=== PATIENT | female | born 1970 | race Caucasian/White ===

== ENCOUNTER 2023-06-18 07:05 | Emergency (ER) | payer MEDICARE, MEDICAID, SELFPAY ==
[2023-06-18 07:08] VITALS: BP 154/88; PULSE 83; RESP 20; TEMP 36.5; O2SAT 97; BMI 22.9
--- NOTE | 2023-06-18 07:20 | ED.NAVMDI1 ---
HPI - Nausea/Vomiting/Diarrhea General Chief complaint: Nausea/Vomiting/Diarrhea Stated complaint: NAUSEA/VOMITING Time Seen by Provider: 06/18/23 07:19 Source: patient Mode of arrival: ambulance History of Present Illness HPI Narrative: 52-year-old male presents for nausea vomiting and diarrhea. It started during the middle of the night. When she went to bed last night she was fine and she has not been around anybody who has been sick. No hematemesis or blood in her diarrhea. She has not had a fever. Related Data Previous Rx's Medication Instructions Recorded ondansetron 4 mg disintegrating 4 mg PO Q6H PRN nausea and 06/18/23 tablet vomiting #20 tabs Allergies Allergy/AdvReac Type Severity Reaction Status Date / Time No Known Drug Allergies Allergy Verified 06/18/23 07:10 Review of Systems ROS Narrative A ten point review of systems is negative except as noted above. Exam Narrative Exam Narrative: Nurses note and vital signs reviewed and patient is not hypoxic. General: The patient appears well and in no apparent distress. Patient is resting comfortably on cart. Skin: Warm, dry, no pallor noted. There is no rash noted. Head: Normocephalic, atraumatic Eye: Normal conjunctiva, no drainage Ears, Nose, Mouth, and Throat: oral mucosa is moist. Nares patent. Cardiovascular: Regular Rate and Rhythm Respiratory: Patient is in no distress, no accessory muscle use, lungs are clear to auscultation, no wheezing, rales or rhonchi Back: non-tender GI: Soft and nontender Musculoskeletal: The patient has no evidence of calf tenderness, no pitting edema, symmetrical pulses noted bilaterally Neurological: A&O, normal speech Psychiatric: Cooperative Constitutional Vital Signs, click to edit/add: Last Vital Signs Temp 97.7 F 06/18/23 07:08 Pulse 83 06/18/23 07:08 Resp 20 06/18/23 07:08 BP 154/88 H 06/18/23 07:08 Pulse Ox 97 06/18/23 07:08 O2 Del Method Room Air 06/18/23 07:08 Course Vital Signs Vital signs: Vital Signs Temperature 97.7 F 06/18/23 07:08 Pulse Rate 83 06/18/23 07:08 Respiratory Rate 20 06/18/23 07:08 Blood Pressure 154/88 H 06/18/23 07:08 Pulse Oximetry 97 06/18/23 07:08 Oxygen Delivery Method Room Air 06/18/23 07:08 Temperature 97.7 F 06/18/23 07:08 Pulse Rate 83 06/18/23 07:08 Respiratory Rate 20 06/18/23 07:08 Blood Pressure 154/88 H 06/18/23 07:08 Pulse Oximetry 97 06/18/23 07:08 Oxygen Delivery Method Room Air 06/18/23 07:08 MDM - Nausea/Vomiting/Diarrhea MDM Narrative Medical decision making narrative: The patient feels much better after IV fluids and IV Zofran. WBC 20,000 but she has got no abdominal tenderness. Repeat examination at 8:15 AM shows her abdomen to be completely nontender. She is tolerating p.o. liquids and is able to be discharged home. Treatment diagnosis and follow-up were discussed with patient. Differential Diagnosis Differential diagnosis: Likely food poisoning, gastroenteritis and dehydration Lab Data Attestation: I reviewed the patient's lab results. Labs: Lab Results 06/18/23 Range/Units 07:13 WBC 20.1 H (4.0-11.0) 10^3/uL RBC 4.68 (4.20-5.40) 10^6/uL Hgb 15.0 (12.0-16.0) g/dL Hct 44.1 (36.0-48.0) % MCV 94.2 (81.0-99.0) fL MCH 32.1 (26.7-34.0) pg MCHC 34.0 (29.9-35.2) g/dL RDW 12.0 (11.0-15.0) % Plt Count 331 (150-450) 10^3/uL MPV 9.7 (9.5-13.5) fL Seg Neuts % (Manual) 92.0 Lymphocytes % (Manual) 4.0 L (20.5-60.0) % Monocytes % (Manual) 4.0 (1.7-12.0) % Eosinophils % (Manual) 0.0 L (0.9-7.0) % Basophils % (Manual) 0.0 L (0.2-2.0) % Neutrophils # (Manual) 18.49 H (1.4-6.5) 10^3/uL Lymphocytes # (Manual) 0.80 L (1.20-3.80) 10^3/uL Monocytes # (Manual) 0.80 (0.30-0.80) 10^3/uL Eosinophils # (Manual) 0.00 (0.00-0.70) 10^3/uL Basophils # (Manual) 0.00 (0.00-0.10) 10^3/uL Sodium 141 (136-145) mmol/L Potassium 4.5 (3.5-5.1) mmol/L Chloride 102 (98-107) mmol/L Carbon Dioxide 26.3 (21.0-32.0) mmol/L Anion Gap 17.2 BUN 23.0 H (7.0-18.0) mg/dL Creatinine 1.05 H (0.55-1.02) mg/dL Est GFR ( Amer) >60 (>=60) Est GFR (Non-Af Amer) 55 L (>=60) BUN/Creatinine Ratio 21.9 Glucose 189 H (74-106) mg/dL Calcium 9.3 (8.5-10.1) mg/dL Discharge Plan Discharge Chief Complaint: Nausea/Vomiting/Diarrhea Clinical Impression: Nausea, vomiting, and diarrhea Patient Disposition: Home, Self-Care Time of Disposition Decision: 08:19 Condition: Good Mode of Transportation: Private Vehicle Prescriptions / Home Meds: New ondansetron 4 mg tablet,disintegrating 4 mg PO Q6H PRN (Reason: nausea and vomiting) Qty: 20 0RF Instructions: Acute Nausea and Vomiting (ED), Acute Diarrhea (ED) Stand Alone Forms: Portal Instructions Referrals: Physician,Non-Staff, MD [Primary Care Provider] - 1 week
[2023-06-18] MEDS: 0.9 % SODIUM CHLORIDE 1,000 ML 1000 ML IV (07:25)
[2023-06-18] MEDS: ONDANSETRON PF 4 MG/2 ML VIAL IV (07:25)
[2023-06-18 07:26] LABS: Hematocrit 44.1 % (36.0-48.0); Mean Corpuscular Hemoglobin 32.1 pg (26.7-34.0); Mean Corpuscular Volume 94.2 fL (81.0-99.0); Mean Platelet Volume 9.7 fL (9.5-13.5); Platelet Count 331 10^3/uL (150-450); Red Blood Count 4.68 10^6/uL (4.20-5.40); White Blood Count 20.1 10^3/uL (4.0-11.0)
[2023-06-18 07:33] LABS: Anion Gap 17.2; BUN Creatinine Ratio 21.9; Calcium 9.3 mg/dL (8.5-10.1); Carbon Dioxide 26.3 mmol/L (21.0-32.0); Chloride 102 mmol/L (98-107); Estimated GFR (African America >60 (>=60); Estimated GFR (Non-African Ame 55 (>=60); Glucose 189 mg/dL (74-106); Potassium 4.5 mmol/L (3.5-5.1); Sodium 141 mmol/L (136-145)
[2023-06-18 08:05] LABS: Segmented Neut Absolute Manual 18.49 10^3/uL (1.4-6.5)
== END 2023-06-18 08:30 | disposition home or self-care (01) ==
PROVIDERS: Emergency Provider Emergency Medicine
DX: R11.2 Nausea with vomiting, unspecified (principal); R19.7 Diarrhea, unspecified
CPT/HCPCS: 36415; 80048; 85007; 85027; 96374; 99284; J2405

== ENCOUNTER 2023-11-17 10:45 | Emergency (ER) | payer MEDICARE, MEDICAID, SELFPAY ==
[2023-11-17] VITALS (18 sets, daily range): BP systolic 159; BP diastolic 83; PULSE 74–108; TEMP 37.6; O2SAT 96–100; BMI 24.7
[2023-11-17] MEDS: 0.9 % SODIUM CHLORIDE 1,000 ML 1000 ML IV (11:12)
[2023-11-17 11:17] LABS: Basophils Percent Auto 0.2 % (0.2-2.0); Eosinophils Percent Auto 0.3 % (0.9-7.0); Hemoglobin 14.8 g/dL (12.0-16.0); Immature Granulocytes Abs Auto 0.05 10^3/uL (0.00-0.03); Immature Granulocytes Pct Auto 0.3 % (0.0-0.5); Lymphocytes Absolute Auto 0.9 10^3/uL (1.2-3.8); Lymphocytes Percent Auto 6.1 % (20.5-60.0); Mean Corpuscular HGB Conc 34.4 g/dL (29.9-35.2); Mean Corpuscular Hemoglobin 32.5 pg (26.7-34.0); Mean Corpuscular Volume 94.5 fL (81.0-99.0); Mean Platelet Volume 9.7 fL (9.5-13.5); Monocytes Absolute Auto 1.1 10^3/uL (0.3-0.8); Neutrophils Absolute Auto 13.1 10^3/uL (1.4-6.5); Neutrophils Percent Auto 86.1 % (43.0-75.0); Platelet Count 268 10^3/uL (150-450); Red Blood Count 4.55 10^6/uL (4.20-5.40); Red Cell Distribution Width 11.9 % (11.0-15.0); White Blood Count 15.2 10^3/uL (4.0-11.0)
[2023-11-17] MEDS: FAMOTIDINE/PF 20 MG/2 ML VIAL IV (11:18)
[2023-11-17] MEDS: KETOROLAC TROMETHAMINE 30 MG/ML VIAL 15 MG IVP (11:18)
[2023-11-17 12:27] LABS: Alanine Aminotransferase 12 U/L (14-59); Albumin Globulin Ratio 0.9; Albumin Level 3.4 g/dL (3.4-5.0); Alkaline Phosphatase 85 U/L (46-116); Anion Gap 16.6; Aspartate Amino Transferase 11 U/L (15-37); BUN Creatinine Ratio 10.6; Bilirubin Total 0.5 mg/dL (0.2-1.0); Calcium 8.8 mg/dL (8.5-10.1); Carbon Dioxide 22.3 mmol/L (21.0-32.0); Chloride 102 mmol/L (98-107); Estimated GFR (African America >60 (>=60); Estimated GFR (Non-African Ame 55 (>=60); Glucose 161 mg/dL (74-106); Potassium 3.9 mmol/L (3.5-5.1); Sodium 137 mmol/L (136-145); Total Protein 7.4 g/dL (6.4-8.2)
[2023-11-17] MEDS: DICYCLOMINE HCL 10 MG CAPSULE 60 MG PO (13:49)
--- NOTE | 2023-11-17 15:29 | ED_ITS ---
HPI HPI - General Adult General Chief complaint: Nausea/Vomiting/Diarrhea Stated complaint: FOOD POISONING SYMPTOMS Time Seen by Provider: 11/17/23 10:52 Source: patient Mode of arrival: walk-in Limitations: no limitations History of Present Illness HPI narrative: The patient is coming to the ER with diarrhea as well as crampy abdominal pain that started after she just finished her ravioli that she got from [employer], she mentioned that she had that for dinner but woke up at 4 AM with diarrhea Patient was emotional and crying No nausea no fever and crampy abdominal pain Related Data Home Medications ?Medication ?Instructions ?Recorded ?Confirmed buspirone 10 mg tablet 10 mg PO .BId PRN anxiety 11/17/23 11/17/23 fluconazole 150 mg tablet 150 mg PO Q72H 11/17/23 11/17/23 venlafaxine 150 mg 150 mg PO DAILY 11/17/23 11/17/23 capsule,extended release 24 hr venlafaxine 37.5 mg 37.5 mg PO DAILY 11/17/23 11/17/23 capsule,extended release 24 hr Previous Rx's ?Medication ?Instructions ?Recorded ondansetron 4 mg disintegrating 4 mg PO Q6H PRN nausea and 06/18/23 tablet vomiting #20 tabs dicyclomine 20 mg tablet 20 mg PO QID PRN abdominal pain 11/17/23 #20 tabs Allergies Allergy/AdvReac Type Severity Reaction Status Date / Time No Known Drug Allergies Allergy Verified 06/18/23 07:10 Opioid HPI Opioid Management Most Recent Opioid Data: Last Pain Scale 7 11/17/23 11:18 Last MAR Pain Assessment 11/17/23 11:18 Review of Systems ROS Status of ROS 10 or more systems reviewed and unremark able except as noted in history and below Exam Narrative Exam Narrative: Nurses notes and vital signs reviewed and patient is not hypoxic. General: Well-appearing and in no apparent distress. Skin: Warm, dry, no pallor noted. No rash. Head: Normocephalic, atraumatic. Neck: Supple, non-tender. Eye: Pupils are equal, round and EOMI. No scleral icterus. Ears, Nose, Mouth, and Throat: TM are clear, no nasal mucosal hypertrophy. Oral mucosa is moist, no posterior oropharynx erythema, uvula is mid-line Cardiovascular: Regular Rate and Rhythm without murmur, gallop or rub. Respiratory: No accessory muscle use or respiratory distress. Lungs are clear to auscultation, no wheezing, rales or rhonchi Chest Wall: no tenderness Back: No midline thoracic or lumbar vertebral tenderness. No CVA tenderness Musculoskeletal: normal ROM, no calf or popliteal tenderness, no lower extremity edema/swelling GI: Abdomen is soft, non-distended. Normal bowel sounds. No masses appreciated. No tenderness to palpation. No rebound, guarding, or rigidity noted. Neurological: A&O x4. No cranial nerve dysfunction observed. No truncal ataxia. Moves all extremities. Sensation intact. Psychiatric: Cooperative and interactive. Normal mood and affect. Constitutional Vital Signs, click to edit/add: Last Vital Signs Temp 99.7 F 11/17/23 10:47 Pulse 74 11/17/23 13:20 Resp 15 11/17/23 13:20 BP 159/83 H 11/17/23 10:50 Pulse Ox 98 11/17/23 13:20 O2 Del Method Room Air 11/17/23 10:47 Course Vital Signs Vital signs: Vital Signs Temperature 99.7 F 11/17/23 10:47 Pulse Rate 101 H 11/17/23 10:47 Respiratory Rate 20 11/17/23 10:47 Blood Pressure 159/83 H 11/17/23 10:47 Pulse Oximetry 99 11/17/23 10:47 Oxygen Delivery Method Room Air 11/17/23 10:47 Temperature 99.7 F 11/17/23 10:47 Pulse Rate 74 11/17/23 13:20 Respiratory Rate 15 11/17/23 13:20 Blood Pressure 159/83 H 11/17/23 10:50 Pulse Oximetry 98 11/17/23 13:20 Oxygen Delivery Method Room Air 11/17/23 10:47 Medical Decision Making MDM Narrative Medical decision making narrative: Patient was evaluated previously for similar complaint and she did had leukocytosis before when she had that but today her white blood cell is better Abdomen examination was benign CBC and chemistry otherwise showed no acute pathology and the patient was treated with IV fluids and Toradol after which she was feeling better She was discharged home with [facility] Patient mentioned that she have the habit of eating old food and usually does not have any problem but I did explain to her that old foods can be growing bacteria The patient is to follow up with primary care physician in next 2-3 days or to return to the emergency department should any of the signs or symptoms worsen or new symptoms develop. The patient agrees with the following Diagnosis and Treatment plan and the patient will be discharged home. Lab Data Labs: Lab Results 11/17/23 11/17/23 Range/Units 11:00 11:26 WBC 15.2 H (4.0-11.0) 10^3/uL RBC 4.55 (4.20-5.40) 10^6/uL Hgb 14.8 (12.0-16.0) g/dL Hct 43.0 (36.0-48.0) % MCV 94.5 (81.0-99.0) fL MCH 32.5 (26.7-34.0) pg MCHC 34.4 (29.9-35.2) g/dL RDW 11.9 (11.0-15.0) % Plt Count 268 (150-450) 10^3/uL MPV 9.7 (9.5-13.5) fL Neut % (Auto) 86.1 H (43.0-75.0) % Lymph % (Auto) 6.1 L (20.5-60.0) % [place] % (Auto) 7.0 (1.7-12.0) % Eos % (Auto) 0.3 L (0.9-7.0) % Baso % (Auto) 0.2 (0.2-2.0) % Neut # (Auto) 13.1 H (1.4-6.5) 10^3/uL Lymph # (Auto) 0.9 L (1.2-3.8) 10^3/uL [place] # (Auto) 1.1 H (0.3-0.8) 10^3/uL Eos # (Auto) 0.0 (0.0-0.7) 10^3/uL Baso # (Auto) 0.0 (0.0-0.1) 10^3/uL Abs Immat Gran (auto) 0.05 H (0.00-0.03) 10^3/uL Imm/Tot Granulo (auto) 0.3 (0.0-0.5) % Sodium 137 (136-145) mmol/L Potassium 3.9 (3.5-5.1) mmol/L Chloride 102 (98-107) mmol/L Carbon Dioxide 22.3 (21.0-32.0) mmol/L Anion Gap 16.6 BUN 11.0 (7.0-18.0) mg/dL Creatinine 1.04 H (0.55-1.02) mg/dL Est GFR ( Amer) >60 (>=60) Est GFR (Non-Af Amer) 55 L (>=60) BUN/Creatinine Ratio 10.6 Glucose 161 H (74-106) mg/dL Calcium 8.8 (8.5-10.1) mg/dL Total Bilirubin 0.5 (0.2-1.0) mg/dL AST 11 L (15-37) U/L ALT 12 L (14-59) U/L Alkaline Phosphatase 85 (46-116) U/L Total Protein 7.4 (6.4-8.2) g/dL Albumin 3.4 (3.4-5.0) g/dL Globulin 4.0 g/dL Albumin/Globulin Ratio 0.9 Discharge Plan Discharge Stand Alone Forms: Portal Instructions Chief Complaint: Nausea/Vomiting/Diarrhea Clinical Impression: Food poisoning Patient Disposition: Home, Self-Care Time of Disposition Decision: 13:01 Condition: Good Prescriptions / Home Meds: New dicyclomine 20 mg tablet 20 mg PO QID PRN (Reason: abdominal pain) Qty: 20 0RF No Action ondansetron 4 mg tablet,disintegrating 4 mg PO Q6H PRN (Reason: nausea and vomiting) Qty: 20 0RF venlafaxine 37.5 mg capsule,extended release 24hr 37.5 mg PO DAILY fluconazole 150 mg tablet 150 mg PO Q72H venlafaxine 150 mg capsule,extended release 24hr 150 mg PO DAILY buspirone 10 mg tablet 10 mg PO .BId PRN (Reason: anxiety) Print Language: Ukrainian Instructions: Food Poisoning (ED) Referrals: Physician,Non-Staff, MD [Primary Care Provider] - 1 week Discharge Date/Time: 11/17/23 13:56
== END 2023-11-17 13:56 | disposition home or self-care (01) ==
PROVIDERS: Emergency Provider Emergency Medicine
DX: A05.9 Bacterial foodborne intoxication, unspecified (principal)
CPT/HCPCS: 36415; 80053; 85025; 96361; 96374; 96375; 99284; J1885

== ENCOUNTER 2024-04-26 20:02 | Emergency (ER) | payer MEDICARE, MEDICAID, SELFPAY ==
[2024-04-26 20:12] VITALS: BP 151/92; PULSE 82; TEMP 37.3; O2SAT 97; BMI 23.8
--- NOTE | 2024-04-26 20:19 | XR_ITS ---
The [address] [address] Patient Name: EVELYN SANCHEZ MRN: [id number] date: 1970 Sex: F Assigned Patient Location: ED.MAIN Current Patient Location: ED.MAIN Accession/Order Number: [id number] Exam Date: 04/26/2024 20:45 Report Date: 04/26/2024 21:16 At the request of: LEONARDA MARKER Procedure: XR finger LT min 2V Exam: Radiographs: XR finger LT min 2V Reason for exam: cat bite to left index finger Comparison: None XR/XR finger LT min 2V IMPRESSION: Unremarkable left finger radiographs. Electronically authenticated by: DIANA FERGUSON Date: 04/26/2024 21:16
--- NOTE | 2024-04-26 20:21 | ED.ANIMALBI1 ---
HPI - Animal Bite General Chief Complaint: Animal Bite Stated Complaint: Cat Bite Time Seen by Provider: 04/26/24 20:16 Source: patient Mode of arrival: walk-in Limitations: no limitations History of Present Illness HPI narrative: This 53-year-old female presents for evaluation of a cat bite to her left hand. The patient states they were giving her cat its flea medication when it bit her on the left index finger. She has puncture wounds on the palmar and dorsal aspect of the left index finger. She states that this happened approximately 24 hours ago and shortly after it happened she started to feel like she was getting a fever with generalized bodyaches, nausea and vomiting. She states that she has soaked her hand and squeezed it multiple times but is afraid it is going to get infected. There is no redness or swelling of the finger. She has taken some Tylenol throughout the day today for her fever. The cat is an indoor cat but has not had its vaccinations for many years. The patient does not know the date of her last tetanus shot. Related Data Home Medications ?Medication ?Instructions ?Recorded ?Confirmed buspirone 10 mg tablet 10 mg PO .BId PRN anxiety 11/17/23 11/17/23 fluconazole 150 mg tablet 150 mg PO Q72H 11/17/23 11/17/23 venlafaxine 150 mg 150 mg PO DAILY 11/17/23 11/17/23 capsule,extended release 24 hr venlafaxine 37.5 mg 37.5 mg PO DAILY 11/17/23 11/17/23 capsule,extended release 24 hr Previous Rx's ?Medication ?Instructions ?Recorded ondansetron 4 mg disintegrating 4 mg PO Q6H PRN nausea and 06/18/23 tablet vomiting #20 tabs dicyclomine 20 mg tablet 20 mg PO QID PRN abdominal pain 11/17/23 #20 tabs Allergies Allergy/AdvReac Type Severity Reaction Status Date / Time No Known Drug Allergies Allergy Verified 04/26/24 20:16 Review of Systems ROS Status of ROS 10 or more systems reviewed and unremarkable except as noted in history and below PFSH PFSH Social History Little interest or pleasure in doing things: not at all Feeling down, depressed, or hopeless: not at all Exam Narrative Exam Narrative: Vital signs and Nursing Notes reviewed: Is afebrile with a normal pulse, blood pressure is mildly elevated at 151/92, she is not hypoxic with pulse ox of 97% on room air General: Awake, alert, oriented, no acute distress, lying comfortably on the stretcher HEENT: Normocephalic atraumatic, mucous membranes are moist and pink, eyes are clear, normal conjunctiva, vision is grossly intact Neck: Supple, no meningeal signs, no anterior or posterior cervical lymphadenopathy Chest: Lungs are clear to auscultation with good air entry, there is no wheezing rhonchi or rales appreciated no accessory muscle use, patient is speaking in complete sentences-no chest wall tenderness to palpation CVS: Regular rate and rhythm S1-S2, no murmurs rubs or gallops, pulses are brisk and equal bilaterally ABD: Soft, nondistended, nontender, no rebound guarding or rigidity, bowel sounds are normal, no pulsatile masses appreciated Extremities: There is a puncture wound on the volar surface of the left index finger and 2 puncture wounds on the palmar surface of the left index finger. There is no notable redness, swelling or signs of infection. There is no lymphangitic streaking. She easily makes a fist. There is no nail injury. Skin: Normal in appearance without rash,pallor, petechiae or purpura Neuro: No focal deficits Constitutional Vital Signs, click to edit/add: Last Vital Signs Temp 99.1 F 04/26/24 20:12 Pulse 82 04/26/24 20:12 Resp 16 04/26/24 20:12 BP 151/92 H 04/26/24 20:12 Pulse Ox 97 04/26/24 20:12 O2 Del Method Room Air 04/26/24 20:12 Course Vital Signs Vital signs: Vital Signs Temperature 99.1 F 04/26/24 20:12 Pulse Rate 82 04/26/24 20:12 Respiratory Rate 16 04/26/24 20:12 Blood Pressure 151/92 H 04/26/24 20:12 Pulse Oximetry 97 04/26/24 20:12 Oxygen Delivery Method Room Air 04/26/24 20:12 Temperature 99.1 F 04/26/24 20:12 Pulse Rate 82 04/26/24 20:12 Respiratory Rate 16 04/26/24 20:12 Blood Pressure 151/92 H 04/26/24 20:12 Pulse Oximetry 97 04/26/24 20:12 Oxygen Delivery Method Room Air 04/26/24 20:12 MDM - Animal Bite MDM Narrative Medical decision making narrative: This 53-year-old female presents for evaluation of a cat bite to her left index finger that occurred approximately 24 hours prior to arrival when the patient was trying to give the cat its flea medication. Her cat is an indoor cat. He does not receive routine vaccinations. The patient does not recall when she last had a tetanus shot. She states that after the cat bite she developed a fever and chills with nausea and was concerned that she was developing infection from the cat bite. She does have puncture wounds on her left index finger that do not appear infected. There is no redness swelling or other notable abnormality to the index finger. Her vital signs here were stable with a very minimal elevation in temperature at 91.1 although she states she has been taking Tylenol. Due to the cat bite and then history of fevers chills and concern for infection an IV was placed and routine labs are ordered. She has a normal lactic acid at 0.9. CBC with differential is normal with a white count of 6.8. X-ray of the left finger was reviewed by myself. There is no fracture, dislocation, foreign body or other notable abnormality. She was medicated with IV fluids, tetanus and Zofran as well as Unasyn for the cat bite. She will be discharged home with prescription for Augmentin to use over the course of the next 7 days. I encouraged her to soak her hand in warm Epsom salt water and return the emergency department as needed for redness swelling, drainage or any concerns. Lab Data Labs: Lab Results 04/26/24 Range/Units 20:30 WBC 6.8 (4.0-11.0) 10^3/uL RBC 4.25 (4.20-5.40) 10^6/uL Hgb 14.0 (12.0-16.0) g/dL Hct 41.2 (36.0-48.0) % MCV 96.9 (81.0-99.0) fL MCH 32.9 (26.7-34.0) pg MCHC 34.0 (29.9-35.2) g/dL RDW 12.0 (11.0-15.0) % Plt Count 250 (150-450) 10^3/uL MPV 10.7 (9.5-13.5) fL Neut % (Auto) 57.2 (43.0-75.0) % Lymph % (Auto) 32.4 (20.5-60.0) % [place] % (Auto) 8.7 (1.7-12.0) % Eos % (Auto) 1.0 (0.9-7.0) % Baso % (Auto) 0.4 (0.2-2.0) % Neut # (Auto) 3.9 (1.4-6.5) 10^3/uL Lymph # (Auto) 2.2 (1.2-3.8) 10^3/uL [place] # (Auto) 0.6 (0.3-0.8) 10^3/uL Eos # (Auto) 0.1 (0.0-0.7) 10^3/uL Baso # (Auto) 0.0 (0.0-0.1) 10^3/uL Abs Immat Gran (auto) 0.02 (0.00-0.03) 10^3/uL Imm/Tot Granulo (auto) 0.3 (0.0-0.5) % Lactate 0.9 (0.4-2.0) mmol/L Discharge Plan Discharge Chief Complaint: Animal Bite Clinical Impression: Cat bite Patient Disposition: Home, Self-Care Time of Disposition Decision: 21:45 Condition: Good Prescriptions / Home Meds: No Action ondansetron 4 mg tablet,disintegrating 4 mg PO Q6H PRN (Reason: nausea and vomiting) Qty: 20 0RF venlafaxine 37.5 mg capsule,extended release 24hr 37.5 mg PO DAILY fluconazole 150 mg tablet 150 mg PO Q72H venlafaxine 150 mg capsule,extended release 24hr 150 mg PO DAILY buspirone 10 mg tablet 10 mg PO .BId PRN (Reason: anxiety) dicyclomine 20 mg tablet 20 mg PO QID PRN (Reason: abdominal pain) Qty: 20 0RF Print Language: Chinese Instructions: Animal Bite (ED) Referrals: Physician,Non-Staff, MD [Primary Care Provider] - 1 week
[2024-04-26] MEDS: 0.9 % SODIUM CHLORIDE 1,000 ML 1000 ML IV (20:39)
[2024-04-26] MEDS: ONDANSETRON PF 4 MG/2 ML VIAL IV (20:42)
[2024-04-26] MEDS: AMPICILLIN SODIUM/SULBACTAM NA 3 GM in 0.9 % SODIUM CHLORIDE 100 ML IV (20:43)
[2024-04-26] MEDS: ADACEL DIPH,PERTUSS(ACELL),TET VAC/PF 0.5 ML ADULT SYRINGE IM (20:45)
[2024-04-26 21:04] LABS: Lactate/Lactic Acid 0.9 mmol/L (0.4-2.0)
[2024-04-26 21:47] LABS: Basophils Percent Auto 0.4 % (0.2-2.0); Eosinophils Absolute Auto 0.1 10^3/uL (0.0-0.7); Hematocrit 41.2 % (36.0-48.0); Immature Granulocytes Abs Auto 0.02 10^3/uL (0.00-0.03); Immature Granulocytes Pct Auto 0.3 % (0.0-0.5); Lymphocytes Absolute Auto 2.2 10^3/uL (1.2-3.8); Lymphocytes Percent Auto 32.4 % (20.5-60.0); Mean Corpuscular Hemoglobin 32.9 pg (26.7-34.0); Mean Corpuscular Volume 96.9 fL (81.0-99.0); Mean Platelet Volume 10.7 fL (9.5-13.5); Monocytes Absolute Auto 0.6 10^3/uL (0.3-0.8); Monocytes Percent Auto 8.7 % (1.7-12.0); Neutrophils Absolute Auto 3.9 10^3/uL (1.4-6.5); Neutrophils Percent Auto 57.2 % (43.0-75.0); Platelet Count 250 10^3/uL (150-450); Red Blood Count 4.25 10^6/uL (4.20-5.40); White Blood Count 6.8 10^3/uL (4.0-11.0)
[2024-04-26 21:55] VITALS: PULSE 88; O2SAT 96
== END 2024-04-26 22:00 | disposition home or self-care (01) ==
PROVIDERS: Emergency Provider Emergency Medicine
DX: S61.231A Puncture wound without foreign body of left index finger without damage to nail, initial encounter (principal); W55.01XA Bitten by cat, initial encounter; Z23 Encounter for immunization
CPT/HCPCS: 36415; 73140; 83605; 85025; 90471; 90715; 96365; 96375; 99285; J0295; J2405